=== PATIENT | male | born 1965 | race Caucasian/White ===

== ENCOUNTER 2024-12-27 15:05 | Emergency (ER) | payer SELFPAY ==
[2024-12-27] VITALS (7 sets, daily range): BP systolic 100–156; BP diastolic 81–90; PULSE 103–130; RESP 14–19; TEMP 36.7–36.9; O2SAT 98–100; BMI 24.7; BMI 11.2
--- NOTE | 2024-12-27 15:10 | CT_ITS ---
PROCEDURE: STROKE BRAIN/HEAD WITHOUT CONT 12/27/2024 REASON FOR EXAM: NEURO DEFICIT, ACUTE, STROKE SUSPECTED TECHNIQUE: STROKE BRAIN/HEAD WITHOUT CONT Coronal and Sagittal reconstruction series were provided. One or more dose reduction techniques were used (e.g., Automated exposure control, adjustment of the mA and/or kV according to patient size, use of iterative reconstruction technique. RADIATION DOSE SUMMARY: CTDlvol: 44.99 mGy DLP: 863.60 mGycm COMPARISON: None FINDINGS: Brain: Within normal limits for age CSF Spaces: Normal Sinuses/Mastoids: Clear at visualized levels Bones: No skull fracture or scalp hematoma CT/STROKE Brain/Head without Cont IMPRESSION: Age consistent changes, no acute findings Reading Location: [id number]
--- NOTE | 2024-12-27 15:10 | EKG12_ITS ---
Test Reason : STROKE Blood Pressure : */* mmHG Vent. Rate : 110 BPM Atrial Rate : 110 BPM P-R Int : 122 ms QRS Dur : 94 ms QT Int : 352 ms P-R-T Axes : 61 64 59 degrees QTcB Int : 476 ms Sinus tachycardia Cannot rule out Anteroseptal infarct , age undetermined Abnormal ECG Confirmed by SAVANNA LINDA, RAFA ([id number]), video tape editor UMAIR ROLLINS ([id number]) on 12/28/2024 1:08:05 PM Referred By: Confirmed By: RAFA CORRALES MD
--- NOTE | 2024-12-27 15:11 | CM.ED ---
Social Work Date of referral: 12/27/24 Reason For Referral: Stroke Alert Evp Chief Exploration Officer responded to stroke alert. No family present. Patient treated and taken away for tests. Cinthia Palumbo, NETWORK CONTROL SUPERVISOR, MEASUREMENT COORDINATOR
--- NOTE | 2024-12-27 15:11 | CT_ITS ---
PROCEDURE: STROKE CTA HEAD AND NECK W/CON 12/27/2024 REASON FOR EXAM: NEURO DEFICIT, ACUTE, STROKE SUSPECTED TECHNIQUE: STROKE CTA HEAD AND NECK W/CON Multiplanar Sagittal and Coronal images were obtained. 3D post processing was performed CONTRAST: Isovue 370 VOLUME: 100 mL One or more dose reduction techniques were used (e.g., Automated exposure control, adjustment of the mA and/or kV according to patient size, use of iterative reconstruction technique). RADIATION DOSE SUMMARY: CTDlvol: 56.54 mGy DLP: 820.72 mGycm COMPARISON: None FINDINGS: Aortic Arch: Mild calcified plaque without aneurysm or dissection Brachiocephalic and Subclavians: Mild atherosclerotic plaque without significant stenosis. RIGHT Carotid: Right CCA: 30% stenosis of the proximal right ICA seen on axial image 96. The right CCA quickly resumes is normal course and caliber to the level of the carotid bulb where there is 50-60 stenosis as noted on axial source images 166 through 211. This is due to low-density mural thrombus. Moderate dense atherosclerotic plaque noted at the common carotid artery bulb and origin of the right ICA. Right ICA: There is 60-70% stenosis of the proximal right ICA noted on source images 256 through 279. The right ICA distal to this stenosis resumes is normal course and caliber no further stenosis is noted along its course there is calcified plaque in the cavernous right ICA. Maximum stenosis (NASCET): 70 % Right ECA: Minimal atherosclerotic plaque at its origin LEFT Carotid: Left CCA: Normal origin of the left CCA. There is a proximally 40% stenosis in its distal aspect due to calcified plaque. It resumes is normal course and caliber to the carotid bulb. There is dense calcified atherosclerotic plaque in the common carotid artery bulb without significant stenosis of the CCA or proximal left ICA. Left ICA: There is a proximally 20% stenosis of the proximal left ICA just distal to its origin before resumes is normal course and caliber. No further stenosis is noted. There is calcific plaque within the cavernous left ICA. Maximum stenosis (NASCET): 40-50% % stenosis of the distal 3rd of the CCA Left ECA: Minimal atherosclerotic plaque at its origin Vertebrals: Codominant. Arise from the subclavians. Both vertebrals form the basilar. RIGHT Vertebral: Unremarkable. LEFT Vertebral: Unremarkable. Anatomy: [place] anatomy is normal. Aneurysm or avm: No intracranial aneurysms or large vascular malformations are identified. Anterior cerebral arteries: Unremarkable: Middle cerebral arteries: Unremarkable. Basilar artery: Unremarkable. Posterior cerebral arteries: Unremarkable. Other major branches of the posterior circulation: Unremarkable. Major venous structures: Unremarkable. Other findings: No suspicious enhancing lesion, no airway narrowing or deviation. No suspicious adenopathy. Thyroid gland is unremarkable, lung apices are clear. CT/STROKE CTA Head AND Neck W/Con IMPRESSION: 60-70% stenosis due to calcified atherosclerotic plaque and mural thrombus in t he proximal right ICA 50% stenosis of the distal right CCA and common carotid artery bulb due to athe rosclerotic plaque and mural thrombus 50% stenosis of the right CCA at its origin 40% stenosis of the distal left CCA due to atherosclerotic disease and mural th rombus No significant stenosis of the proximal left ICA No demonstrated stenosis or occlusive disease in the ACAS MCAs or child nutrition assistant Patent vertebral arteries Reading Location: [id number]
--- NOTE | 2024-12-27 15:11 | RAD_ITS ---
PROCEDURE: CHEST 1 VIEW 12/27/2024 REASON FOR EXAM: NEURO DEFICIT, ACUTE, STROKE SUSPECTED TECHNIQUE: 2 AP portable views COMPARISON: None FINDINGS: Hardware: EKG leads overlie the chest Heart: The heart size is normal. Lungs: The lungs are clear. Bones: Degenerative changes are identified within the thoracic spine. Other: RAD/Chest 1 View IMPRESSION: No acute pulmonary process Reading Location: [id number]
--- NOTE | 2024-12-27 15:20 | EDS_ITS ---
HPI History of Present Illness Chief Complaint: Stroke Alert Narrative Narrative: Patient is a 59-year-old male with no known significant past medical history not any medications daily who presents to the emergency department with a chief complaint of loss of vision out of his right eye. Patient states that few days ago he fell hit his head on the ground. He states that he noted that he had a loss of vision out of his right eye states that all of a sudden my vision went out. He states that he can only see partially out of his right eye he notes that he has a letter C and his vision and it moves. He states that this started around 2 PM yesterday. Patient denies any headaches denies any blood thinner medications. PFSH PFSH Home Medications ?Medication ?Instructions ?Recorded ?Last Taken ?Type aspirin 81 mg tablet 81 mg PO DAILY #30 tabs 12/05 08/28 Unknown Rx clopidogrel 75 mg tablet (Plavix) 75 mg PO DAILY #30 t abs 12/27/24 Unknown Rx Social History Smoking Status: Heavy Smoker (>10/day) ROS ROS ED ROS Narrative Constitutional: Denies headache, fever, chills Eyes: Complains of vision loss of the right eye as noted above denies any changes vision out of his left eye Cardiovascular: Denies any chest pain or palpitations Respiratory: Denies any coughing wheezing shortness of breath Abdomen: Denies nausea vomit diarrhea : Denies urinary symptoms Neurological: Denies any other numbness, weakness, tingling Musculoskeletal: Denies back pain Skin: Denies any rashes or lesions EXAM Physical Exam Const Vital Signs: 12/27/24 15:06 12/27/24 15:07 12/27/24 15:10 Temperature 98.4 F 98.4 F Temperature Source Oral Oral Pulse Rate 115 H 130 H Respiratory Rate 15 16 Blood Pressure 151/81 H 100/83 H Blood Pressure Mean 104 88 Pulse Ox 99 100 Oxygen Delivery Method Room Air Room Air 12/27/24 15:10 12/27/24 15:10 12/27/24 15:36 Temperature Temperature Source Pulse Rate 119 H 117 H Respiratory Rate 14 15 Blood Pressure 151/81 H 156/89 H Blood Pressure Mean 104 111 Pulse Ox 98 100 Oxygen Delivery Method Room Air Room Air Room Air 12/27/24 16:32 12/27/24 17:00 Temperature Temperature Source Pulse Rate 110 H 103 H Respiratory Rate 19 H 18 Blood Pressure 142/90 H 149/86 H Blood Pressure Mean 107 107 Pulse Ox 98 100 Oxygen Delivery Method Room Air Room Air MDM MDM MDM Narrative Medical decision making narrative: Patient is a 59-year-old male who presented to the emergency department the chief complaint of loss of vision out of his right eye. On the differential diagnosis includes but not limited to central retinal artery occlusion, central retinal vein occlusion, retinal detachment, intracranial hemorrhage, ischemic stroke. Once the workup is obtained reviewed he will be reevaluated. Patient is not a tenecteplase candidate as his symptoms are greater than 4-1/2 hours as a started at 2 PM yesterday 12/26/2024 Patient CBC reviewed showed no evidence leukocytosis white blood count normal 7.5, he was 15, platelet count of 213. Patient's PT of 12.4, INR 0.9. Patient sodium normal 133, potassium normal 4.4, creatinine was 1.02. Patient's troponin was 28 with a delta troponin pending. Patient's EKG was reviewed which showed sinus tachycardia with a rate of 110 bpm with a RI interval of [address] changes noted. Patient's cudql-kv-tlck glucose was 313.Patient CT head brain without contrast reviewed and showed no acute findings H consistent changes. Patient chest x-ray reviewed by myself by radiology showed no acute cardiopulmonary processes. Patient CTA head and neck reviewed and showed 60 to 70% stenosis due to calcified acidotic plaque and mural thrombus in the proximal right ICA.. 50% stenosis of the distal right CCA and common carotid artery bulb due to atherosclerotic plaque and mural thrombus. 50% stenosis in the right CCA at its origin. 40% stenosis of the distal left CCA due to atherosclerotic disease and renal thrombus. No significant stenosis of the proximal left ICA no demonstrated stenosis or occlusive disease of the MCA or designer and patternmaker patent vertebral arteries. Did discuss case also with Dr. Fitch on-call teleneurologist who is recommending if the CTAs of the head and neck do not show any evidence of large vessel occlusion the patient can be admitted to the hospital here for further workup. I went back into discuss the results with the patient and recommended admission he states that he cannot stay as he has too much to take care of. I advised him that he will have to leave AGAINST MEDICAL ADVICE as after doing bedside ultrasound there is no evidence of large retinal detachment. I discussed the risks of leaving which include to worsening vision to complete blindness as well as potential worsening stroke leading to ultimately his . He verbalized understanding of this. I reached out to on-call kinder teacher Dr. Reyes who I gave the patient's information to him and states that his office will call him for an appointment tomorrow to get him in to be further evaluated. I also reached out to vascular surgery and spoke with the physician virtual office assistant Calli and discussed the findings with her and she is recommending dual antiplatelet therapy with aspirin Plavix. I did notify the patient of this and prescriptions were sent to the pharmacy. He is advised to return with worsening symptoms or any other concerns. He was asked to sign out AGAINST MEDICAL ADVICE as noted. Lab Data Labs: Laboratory Results - last 24 hr 12/27/24 12/27/24 15:10 15:15 WBC 7.5 RBC 4.34 L Hgb 15.0 Hct 41.4 MCV 95.4 H MCH 34.6 H MCHC 36.2 H RDW Std Deviation 40.9 RDW Coeff of Daryl 11.7 Plt Count 213 MPV 9.1 Immature Gran % (Auto) 0.300 Neut % (Auto) 66.9 Lymph % (Auto) 23.5 Smyth % (Auto) 7.7 Eos % (Auto) 0.9 Baso % (Auto) 0.7 Absolute Neuts (auto) 5.0 Absolute Lymphs (auto) 1.77 Nucleated RBC % 0 PT 12.4 INR 0.9 APTT 23.4 L Sodium 133 Potassium 4.4 Chloride 98 Carbon Dioxide 21.4 Anion Gap 14 BUN 11 Creatinine 1.02 Estim Creat Clear Calc 87.70 Est GFR (MDRD) Non-Af 86 BUN/Creatinine Ratio 10.6 Glucose 288 H Calcium 9.1 Troponin T High Sens 28 H POC Glucose 313 H Radiography Diagnostic Testing: Clinical Impression(s) from Imaging Studies Brain CT 12/27/24 15:10 IMPRESSION: Age consistent changes, no acute findings Reading Location: [facility] Chest X-Ray 12/27/24 15:11 IMPRESSION: No acute pulmonary process Reading Location: [facility] Head/Neck CTA 12/27/24 15:11 IMPRESSION: 60-70% stenosis due to calcified atherosclerotic plaque and mural thrombus in the proximal right ICA 50% stenosis of the distal right CCA and common carotid artery bulb due to atherosclerotic plaque and mural thrombus 50% stenosis of the right CCA at its origin 40% stenosis of the distal left CCA due to atherosclerotic disease and mural thrombus No significant stenosis of the proximal left ICA No demonstrated stenosis or occlusive disease in the ACAS MCAs or designer and patternmaker Patent vertebral arteries Reading Location: [facility] Discharge Plan Triage Chief Complaint: Stroke Alert ED Provider: Joshua Turcios Dx/Rx/DC Orders Clinical Impression: Blurred vision, right eye, Carotid arterial disease, Tobacco abuse Prescriptions: New clopidogrel [Plavix] 75 mg tablet 75 mg PO DAILY Qty: 30 0RF aspirin 81 mg tablet 81 mg PO DAILY Qty: 30 0RF Primary Care Provider: Care Physician,No Primary Referrals: Chapito Landrum MD [Non-Staff] - James Mills MD [Med Staff - Active Staff] - Kingsley Reyes MD [Med Staff - Active Staff] - Activity Restrictions/Additional 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 Follow-up with the kinder teacher tomorrow they will be giving you a call in the morning for an appointment. Follow-up with Dr. Mills vascular surgery as your CT of your neck showed that you have narrowing of the arteries in your neck. Return with worsening symptoms or any concerns Print Language: Citizen Of [place] Disposition Disposition: Home, Self Care
[2024-12-27 15:27] LABS: Hematocrit 41.4 % (40-54); Hemoglobin 15.0 g/dL (13.0-16.5); Immature Granulocytes Count 0.020 X10^3/uL (0.0-0.0); Mean Corp Hgb Conc 36.2 g/dL (32-36); Mean Corpuscular Volume 95.4 fL (80-94); Mean Platelet Vol. 9.1 fl (6.2-12.0); NRBC Flagged by Analyzer 0 % (0-5); Platelet Count 213 K/mm3 (150-450); RBC Distribution Width CV 11.7 % (11.6-14.6); RBC Distribution Width SD 40.9 fl (35.1-43.9); Red Blood Count 4.34 M/mm3 (4.6-6.2); White Blood Count 7.5 K/mm3 (4.4-11.0)
[2024-12-27 15:37] LABS: Prothrombin Time (Protime)PT. 12.4 SECONDS (11.7-14.9)
[2024-12-27 15:38] LABS: Partial Thromboplast Time 23.4 Seconds (24.1-36.2)
[2024-12-27 15:47] LABS: Anion Gap 14 (5-15); BUN 11 mg/dL (4-19); BUN/Creat Ratio 10.6 RATIO (10-20); Calcium,Total 9.1 mg/dL (7.6-11.0); Carbon Dioxide 21.4 mmol/L (21.0-32.0); Chloride 98 mmol/L (98-108); Estimated Creatinine Clearance 87.70 ml/min (50-250); Glucose 288 mg/dL (70-99); Potassium 4.4 mmol/L (3.3-5.1); Troponin T High Sensitivity 28 ng/L (<=22)
== END 2024-12-27 18:46 | disposition left against medical advice (07) ==
PROVIDERS: Emergency Provider Emergency Medicine; Visit Provider Emergency Medicine
DX: H53.8 Other visual disturbances (principal); I65.23 Occlusion and stenosis of bilateral carotid arteries; Z53.29 Procedure and treatment not carried out because of patient's decision for other reasons; F17.200 Nicotine dependence, unspecified, uncomplicated; Z79.82 Long term (current) use of aspirin; Z79.02 Long term (current) use of antithrombotics/antiplatelets; Z79.899 Other long term (current) drug therapy
CPT/HCPCS: 70450; 70496; 70498; 71045; 80048; 82962; 84484; 85025; 85610; 85730; 93005; 99285; Q9967; A4216

== ENCOUNTER → 2025-01-27 | Outpatient (CLI) | payer SELFPAY ==
--- NOTE | 2025-01-27 09:42 | CDU_ITS ---
Reason For Study Reason For Study: R ICA Stenosis, R CRAO Rt. Velocities/BP Lt. Velocities/BP Prox CCA 77.8/14.5 cm/sec. Prox CCA 94.9/26.2 cm/sec. Mid CCA 70.2/17.3 cm/sec. Mid CCA 113.8/26.1 cm/sec. Dist CCA 124.7/26.1 cm/sec. Dist CCA 106.5/29.8 cm/sec. Prox ICA 291.5/67.9 cm/sec. Prox ICA 84.6/18.8 cm/sec. Mid ICA 201.3/56.1 cm/sec. Mid ICA 81.5/22.9 cm/sec. Dist ICA 122.6/29.3 cm/sec. Dist ICA 74.0/31.1 cm/sec. Rt. ICA/CCA = 4.2. Lt. ICA/CCA = 0.7. Prox ECA 137.5/18.8 cm/sec. Prox ECA 214.3/17.1 cm/sec. Rt. Vert. 51.7/13.3 cm/sec. Lt. Vert. 55.3/14.6 cm/sec. Right Extracranial There is heterogeneous, irregular atherosclerotic plaque noted in the right common carotid artery. There is heterogeneous, irregular atherosclerotic plaque noted in the right internal carotid artery. There is heterogeneous, irregular atherosclerotic plaque noted in the right external carotid artery. Antegrade flow is noted in the right vertebral artery. Left Extracranial There is heterogeneous, irregular atherosclerotic plaque noted in the left common carotid artery. There is heterogeneous, irregular atherosclerotic plaque noted in the left internal carotid artery. There is heterogeneous, irregular atherosclerotic plaque noted in the left external carotid artery. Antegrade flow is noted in the left vertebral artery. Procedure Carotid Duplex 81986. This is a Carotid Duplex examination using B-mode, color flow and specral Doppler. Exam performed in department. VL/Carotid Duplex Ultrasound Interpretation Summary Severe (>70%) stenosis right extracranial internal carotid. Mild (<50%) stenosis left extracranial internal carotid. Patent and antegrade vertebrals bilaterally. Ordering Physician: Calli Whyte Performed By: Kimi Butler RVT
== END | disposition home or self-care (01) ==
PROVIDERS: Referring Provider Physician Assistant; Visit Provider Physician Assistant
DX: I65.21 Occlusion and stenosis of right carotid artery (principal); H34.231 Retinal artery branch occlusion, right eye
CPT/HCPCS: 93880

== ENCOUNTER → 2025-02-17 | Outpatient (CLI) | payer SELFPAY ==
--- NOTE | 2025-02-17 10:48 | ECHOCS_ITS ---
Reason For Study Reason For Study: ABNORMAL EKG Procedure This was a 2D Doppler, Color Flow transthoracic echocardiogram. The study was technically difficult. Contrast injection was performed. Exam performed in department. Left Ventricle Normal LV size. The estimated ejection fraction is 20 %. Stage 1 diastolic dysfunction. There is severe global hypokinesis of the left ventricle. Right Ventricle Normal RV size. Normal systolic function. Atria Normal left atrium. Normal right atrium. Mitral Valve There is mild mitral annular calcification. Tricuspid Valve Normal tricuspid valve. Mild (1+) tricuspid valve insufficiency. Pulmonary artery systolic pressure is 28 mmHg. Aortic Valve Trisinus/trileaflet aortic valve. Pulmonic Valve Normal pulmonic valve. Great Vessels Normal aortic root. The pulmonary artery is normal size. Inferior vena cava collapse with respiration. Pericardium/Pleural No pericardial effusion. Medication 22 gauge I.V. with prn adaptor inserted into right arm. Diluted definity 3ml given slow IV push to enhance endocardial definition. MMode/2D Measurements & Calculations LVIDd: 5.5 cm IVSd: 0.79 cm LVOT diam: 2.3 cm LVIDs: 4.3 cm LVPWd: 0.97 cm RVDd: 3.0 cm FS: 21.1 % LVOT area: 4.0 cm2 LAV(MOD-bp): 44.8 ml LVAd ap4: 43.2 cm2 LVAd ap2: 46.0 cm2 LAV(MOD-bp) Indexed: 21.8 ml/m2 LVLd ap4: 8.9 cm LVLd ap2: 9.3 cm LAV(MOD-sp2): 45.6 ml EDV(MOD-sp4): 168.5 ml EDV(MOD-sp2): 184.9 ml LAV(MOD-sp4): 43.3 ml EDV(sp4-el): 177.2 ml EDV(sp2-el): 192.4 ml LVAs ap4: 38.5 cm2 LVAs ap2: 37.5 cm2 LVLs ap4: 8.8 cm LVLs ap2: 8.2 cm ESV(MOD-sp4): 135.5 ml ESV(MOD-sp2): 142.8 ml ESV(sp4-el): 142.7 ml ESV(sp2-el): 146.6 ml EF(MOD-sp4): 19.6 % EF(MOD-sp2): 22.8 % EF(sp4-el): 19.5 % SV(MOD-sp4): 33.0 ml SV(MOD-sp2): 42.1 ml SV(sp4-el): 34.6 ml SI(MOD-sp4): 16.1 ml/m2 SI(MOD-sp2): 20.5 ml/m2 Ao sinus diam: 3.4 cm LA A4 area: 16.9 cm2 LA dimension(2D): 3.6 cm TAPSE: 1.8 cm RA A4 area: 11.1 cm2 Time Measurements MV dec time: 0.13 sec Doppler Measurements & Calculations MV E max ap: 93.2 cm/sec Lat Peak E' Ap: 9.3 cm/sec Med Peak E' Ap: 10.3 cm/sec MV A max ap: 98.3 cm/sec E/E' lat: 10.0 E/E' med: 9.0 MV E/A: 0.95 MV dec slope: 725.6 cm/sec2 Ao V2 max: 121.2 cm/sec LV V1 max: 100.6 cm/sec Ao max P.9 mmHg LV V1 max P.1 mmHg Ao V2 mean: 100.9 cm/sec LV V1 mean P.9 mmHg Ao mean P.2 mmHg LV V1 mean: 63.1 cm/sec Ao V2 VTI: 23.0 cm LV V1 VTI: 19.4 cm AV (velocity ratio): 0.84 MERLY(I,D): 3.4 cm2 MERLY(V,D): 3.3 cm2 SV(LVOT): 78.0 ml PA V2 max: 78.5 cm/sec TR max ap: 243.4 cm/sec TR max P.7 mmHg ECHO/Echo Complete W/ Contrast Interpretation Summary Normal LV size. The estimated ejection fraction is 20 %. There is severe global hypokinesis of the left ventricle. Stage 1 diastolic dysfunction. Contrast injection was performed. Ordering Physician: Ron Ariza Referring Physician: Ron Ariza Performed By: Zohreh Noriega RDCS
== END | disposition home or self-care (01) ==
PROVIDERS: Referring Provider Internal Medicine Cardiovascular Disease; Visit Provider Internal Medicine Cardiovascular Disease
DX: R94.31 Abnormal electrocardiogram [ECG] [EKG] (principal)
CPT/HCPCS: 93306; Q9957; A4216; C8929

== ENCOUNTER → 2025-04-20 | Outpatient (CLI) | payer OTHER, SELFPAY ==
--- NOTE | 2025-04-20 13:46 | ECHOL_ITS ---
Reason For Study Reason For Study: CONGESTIVE HEART FAILURE Procedure This was a limited 2D transthoracic echocardiogram. The patient is in sinus rhythm. The study was technically difficult. Contrast injection was performed. Exam performed in department. Left Ventricle Normal LV size. The left ventricular ejection fraction is 45 %. Moderate segmental systolic dysfunction (see wall motion). Anterior [place] : Akinetic. Mid-Anterior : Akinetic. Lateral [place] : Akinetic. Mid-anteroseptal : Hypokinetic. Basal anteroseptal: Hypokinetic. The rest of the wall segments are normal. Right Ventricle Normal RV size. Normal systolic function. Atria Normal left atrium. Normal right atrium. Bubble contrast study is negative for PFO/ASD. Mitral Valve Normal mitral valve. Tricuspid Valve Normal tricuspid valve. Mild (1+) tricuspid valve insufficiency. Aortic Valve Trisinus/trileaflet aortic valve. Pulmonic Valve Normal pulmonic valve. Great Vessels Normal aortic root. The pulmonary artery is normal size. Inferior vena cava collapse with respiration. Pericardium/Pleural No pericardial effusion. Medication 22 gauge I.V. with prn adaptor inserted into right arm. Diluted definity 2.5ml given slow IV push to enhance endocardial definition. Performed a rapid injection of agitated mix of 9 cc saline and 1cc air to assess for atrial septal defect. MMode/2D Measurements & Calculations LVIDd: 5.3 cm IVSd: 0.72 cm LAV(MOD- bp): 42.1 ml LVIDs: 4.2 cm LVPWd: 0.91 cm RVDd: 3.0 cm FS: 22.1 % LAV(MOD- bp) Indexed: 20.6 ml/m2 LAV(MOD- sp2): 37.1 ml LAV(MOD- sp4): 44.6 ml LVAd ap4: 40.2 cm2 LVAd ap2: 37.8 cm2 EDV(MOD- bp): 138.4 ml LVLd ap4: 9.1 cm LVLd ap2: 9.1 cm ESV(MOD- bp): 79.1 ml EDV(MOD-sp4): 143.7 ml EDV(MOD-sp2): 130.9 ml EF(MOD- bp): 42.9 % EDV(sp4-el): 150.6 ml EDV(sp2-el): 133.8 ml LVAs ap4: 28.2 cm2 LVAs ap2: 29.0 cm2 LVLs ap4: 8.4 cm LVLs ap2: 8.6 cm ESV(MOD-sp4): 77.6 ml ESV(MOD-sp2): 77.8 ml ESV(sp4-el): 80.7 ml ESV(sp2-el): 83.2 ml EF(MOD-sp4): 46.0 % EF(MOD-sp2): 40.6 % EF(sp4-el): 46.4 % SV(MOD-sp4): 66.1 ml SV(MOD-sp2): 53.2 ml SV(sp4- el): 69.8 ml SI(MOD-sp4): 32.3 ml/m2 SI(MOD-sp2): 26.0 ml/m2 Ao sinus diam: 3.7 cm LA dimension(2D): 3.6 cm LA A4 area: 17.0 cm2 RA A4 area: 14.5 cm2 TAPSE: 2.0 cm Time Measurements MV dec time: 0.10 sec Doppler Measurements & Calculations MV E max ap: 87.6 cm/sec Lat Peak E' Ap: 7.7 cm/sec Med Peak E' Ap: 9.4 cm/sec MV A max ap: 96.8 cm/sec E/E' lat: 11.4 E/E' med: 9.3 MV E/A: 0.90 TR max ap: 229.4 cm/sec MV dec slope: 894.0 cm/sec2 TR max P.1 mmHg ECHO/Echo Limited w/Contrast Interpretation Summary Normal LV size. The left ventricular ejection fraction is 45 %. Moderate segmental systolic dysfunction (see wall motion). Mild (1+) tricuspid valve insufficiency. Contrast injection was performed. Ordering Physician: Blaine Coleman Referring Physician: N/A Performed By: Zohreh Noriega RDCS
== END | disposition home or self-care (01) ==
LOC: CVS 13:40
PROVIDERS: Referring Provider Student in an Organized Health Care Education/Training Program; Visit Provider Student in an Organized Health Care Education/Training Program
DX: R94.31 Abnormal electrocardiogram [ECG] [EKG] (principal); I50.20 Unspecified systolic (congestive) heart failure
CPT/HCPCS: 93308; Q9957; A4216; C8924